=== PATIENT | male | born 1985 ===

== ENCOUNTER 2024-06-02 13:36 | Emergency (ER) | payer MEDICARE, OTHER ==
[2024-06-02] MEDS ORDERED: NITROGLYCERIN OINT 1 INCH/GM PACKET TOPICAL ONE (13:57)
[2024-06-02] MEDS ORDERED: LORazepam 2 MG/ML INJ ONE (13:58)
[2024-06-02] MEDS ORDERED: SODIUM CHLORIDE 0.9% 1,000 ML BAG ONE (14:26)
--- NOTE | 2024-07-07 07:52 | XR ---
Patient Andi Christensen ID [id number] Order # EXAMINATION TYPE: XR chest 2V DATE OF EXAM: 06/02/2024 COMPARISON: No comparison on downtime PACS INDICATION: Chest pain TECHNIQUE: Frontal and lateral views of the chest are obtained. FINDINGS: The heart size is normal. The pulmonary vasculature is normal. The lungs are clear. IMPRESSION: 1. No acute pulmonary process.
== END 2024-06-02 16:51 | disposition home or self-care (01) ==
LOC: EC 13:36
CPT/HCPCS: 71046; 93005; 96374; 99285